=== PATIENT | female | born 1970 | race Caucasian/White ===

== ENCOUNTER 2022-08-20 06:02 | Outpatient (CLI) | payer OTHER, SELFPAY | END 2022-08-20 06:03 | disposition home or self-care (01) | LOC: OP CLINIC 06:05 | PROVIDERS: PCP Physician Assistant Medical; Visit Provider Internal Medicine | DX: Z12.11 Encounter for screening for malignant neoplasm of colon (principal) | CPT/HCPCS: 45378; J2250; J2405; J3010 ==

== ENCOUNTER 2022-09-03 14:45 | Outpatient (CLI) | payer OTHER, SELFPAY ==
[2022-09-03 14:24] LABS: Albumin* 4.5 g/dL (3.3-5.0); Chloride* 100 mmol/L (96-114); Potassium* 4.5 mmol/L (3.6-5.1); Sodium* 135 mmol/L (135-149)
[2022-09-03 14:26] LABS: Cholesterol* 204 mg/dL (90-199); Creatinine* 0.8 mg/dL (0.5-1.5); Estimated Glomerular Filt Rate 89 ml/min
[2022-09-03 14:27] LABS: Alanine Aminotransferase* 20 U/L (4-35); Alkaline Phosphatase* 59 U/L (40-150); Aspartate Amino Transferase* 22 U/L (12-35); Bilirubin Total* 0.5 mg/dL (0.1-1.5); Blood Urea Nitrogen* 19 mg/dL (7-30); Calcium* 8.9 mg/dL (8.4-10.6); Carbon Dioxide* 25 mmol/L (20-32); Glucose* 117 mg/dL (60-115); Total Protein* 6.9 g/dL (6.0-8.3); Triglycerides* 56 mg/dL (40-149)
[2022-09-03 14:28] LABS: HDL Cholesterol* 83 mg/dL (>=50); LDL Cholesterol Calculated 110 mg/dL (<100)
== END 2022-09-03 14:46 | disposition home or self-care (01) ==
PROVIDERS: PCP Physician Assistant Medical; Visit Provider Physician Assistant Medical
DX: Z01.419 Encounter for gynecological examination (general) (routine) without abnormal findings (principal); Z13.6 Encounter for screening for cardiovascular disorders
CPT/HCPCS: 80053; 80061

== ENCOUNTER 2022-09-06 08:46 | Outpatient (CLI) | payer OTHER, SELFPAY ==
[2022-09-06 15:04] LABS: HIV 1/2/P24 Combo Screen* Negative (Negative)
[2022-09-06 18:03] LABS: Hepatitis C Virus Antibody* Negative (Negative)
[2022-09-08 21:44] LABS: Prolactin 18.3 ng/mL (2.8-29.2)
== END 2022-09-06 08:47 | disposition home or self-care (01) ==
PROVIDERS: PCP Physician Assistant Medical; Visit Provider Physician Assistant Medical
DX: Z00.00 Encounter for general adult medical examination without abnormal findings (principal); Z13.29 Encounter for screening for other suspected endocrine disorder; Z11.59 Encounter for screening for other viral diseases
CPT/HCPCS: 84146; 84443; 86703; 86803

== ENCOUNTER 2023-04-27 13:49 | Outpatient (CLI) | payer OTHER, SELFPAY ==
--- NOTE | 2023-04-27 14:00 | CRLHL7_ITS ---
For Patients: As a result of the Cures Act, medical imaging exams and procedure reports are released immediately into your electronic medical record. You may view this report before your referring provider. If you have questions, please contact your health care provider. BILATERAL SCREENING MAMMOGRAM WITH COMPUTER-AIDED DETECTION AND TOMOSYNTHESIS TECHNIQUE: CC and MLO views were obtained. These mammographic images have been obtained using full-field digital technique. These mammographic images were interpreted with the benefit of computer-aided detection. Breast tomosynthesis was used in this interpretation. COMPARISON FILM: 09/17/21, 12/10/20, 03/06/18. FINDINGS: There are scattered areas of fibroglandular density. IMPRESSION: There is no radiographic evidence for malignancy. ASSESSMENT: BI-RADS Category 2: Benign RECOMMENDATION: Routine screening mammogram in 1 year. A lay language report of this examination will be provided to the patient. BRIAN BORRERO M.D. Diagnostic/Nuclear Medicine Radiologist [email or web address] JAMAAL:[email or web address] Transcribed: 04/28/2023, 2:[address]/Dictated by: Brian Borrero MD @ 04/28/2023 9:01:00 AM (Electronically Signed)
== END 2023-04-27 13:50 | disposition home or self-care (01) ==
LOC: MAMMO 13:50
PROVIDERS: PCP Physician Assistant Medical; Visit Provider Physician Assistant Medical
DX: Z12.31 Encounter for screening mammogram for malignant neoplasm of breast (principal)
CPT/HCPCS: 77063; 77067

== ENCOUNTER 2023-10-21 08:26 | Outpatient (CLI) | payer OTHER, SELFPAY | END 2023-10-21 08:27 | disposition home or self-care (01) | LOC: NFLDREF 15:06 | PROVIDERS: PCP Physician Assistant Medical; Referring Provider Physician Assistant Medical; Visit Provider Physician Assistant Medical | DX: Z00.00 Encounter for general adult medical examination without abnormal findings (principal); R73.09 Other abnormal glucose; E78.5 Hyperlipidemia, unspecified | CPT/HCPCS: 80053; 80061; 82607 ==

== ENCOUNTER 2024-09-28 08:05 | Outpatient (CLI) | payer OTHER, SELFPAY ==
--- OUTSIDE RECORDS SUMMARY | 2024-09-30 14:27 | XMS_ITS | Clinical Summary ---
Author Organization [facility] Address [address] [place] [id number] Care Team Providers Care Machine Hoop Maker Helper Name Role Phone Rukhsana Chambers PA-C Primary Care Provider Allergies Active Allergy Reactions Criticality Noted Date Comments Penicillins Nausea and Vomiting 12/23/2018 Resolved Problems Problem Noted Date Diagnosed Date Resolved Date Pain in joint, ankle and foot 01/21/2012 02/25/2012 Other postprocedural status(V45.89) 01/21/2012 02/25/2012 Social History Tobacco Use Types Packs/Day Years Used Date Smoking Tobacco: Never Assessed Comments No Sex and Gender Information Value Date Recorded Sex Assigned at Not on file Legal Sex Female 5:16 AM MEDIA PRODUCER Gender Identity Not on file Sexual Orientation Not on file Last Filed Vital Signs Vital Sign Reading Time Taken Comments Blood Pressure 126/81 12/23/2018 12:35 PM MEDIA PRODUCER Pulse - - Temperature 36.8 C (98.2 F) 12/23/2018 12:35 PM MEDIA PRODUCER Respiratory Rate 16 12/23/2018 12:35 PM MEDIA PRODUCER Oxygen Saturation 99% 12/23/2018 12:35 PM MEDIA PRODUCER Inhaled Oxygen Concentration - - Weight 71.2 kg (157 lb) 12/23/2018 12:35 PM MEDIA PRODUCER Height 167.6 cm (5' 6) 12/23/2018 12:35 PM MEDIA PRODUCER Body Mass Index 25.34 12/23/2018 12:35 PM MEDIA PRODUCER Plan of Treatment Not on file Insurance [employer] Care Teams Machine Hoop Maker Helper Relationship Specialty Start Date End Date Rukhsana Chambers PA-C PCP - General Physician Mangle Operator Garments 08/02/19
--- OUTSIDE RECORDS SUMMARY | 2024-09-30 14:27 | XMS_ITS | Referral Summary ---
Author Organization [facility] Address [address] [place] [id number] Care Team Providers Care Camp Maintenance Supervisor Name Role Phone Rukhsana Chambers PA-C Primary [...] on file Legal Sex Female 5:16 AM CARDIAC CARE NURSE Gender Identity Not on file Sexual Orientation Not on file Last Filed Vital Signs Vital Sign Reading Time Taken Comments Blood Pressure 126/81 12/23/2018 12:35 PM CARDIAC CARE NURSE Pulse - - Temperature 36.8 C (98.2 F) 12/23/2018 12:35 PM CARDIAC CARE NURSE Respiratory Rate 16 12/23/2018 12:35 PM CARDIAC CARE NURSE Oxygen Saturation 99% 12/23/2018 12:35 PM CARDIAC CARE NURSE Inhaled Oxygen Concentration - - Weight 71.2 kg (157 lb) 12/23/2018 12:35 PM CARDIAC CARE NURSE Height 167.6 cm (5' 6) 12/23/2018 12:35 PM CARDIAC CARE NURSE Body Mass Index 25.34 12/23/2018 12:35 PM CARDIAC CARE NURSE Plan of Treatment Not on file Insurance [employer] Care Teams Camp Maintenance Supervisor Relationship Specialty Start Date End Date Rukhsana Chambers PA-C PCP - General Physician Building Cleaning Supervisor 08/02/19
== END 2024-09-28 08:06 | disposition home or self-care (01) ==
LOC: NFLDREF 09-30 14:25
PROVIDERS: PCP Physician Assistant Medical; Referring Provider Physician Assistant Medical; Visit Provider Physician Assistant Medical
DX: Z00.00 Encounter for general adult medical examination without abnormal findings (principal); E78.5 Hyperlipidemia, unspecified; R73.09 Other abnormal glucose; E13.9 Other specified diabetes mellitus without complications
CPT/HCPCS: 80053; 80061; 84443

== ENCOUNTER 2024-10-01 08:02 | Outpatient (CLI) | payer OTHER, SELFPAY ==
--- OUTSIDE RECORDS SUMMARY | 2024-10-01 08:05 | XMS_ITS | Clinical Summary ---
Author Organization [facility] Address [address] [place] [id number] Care Team Providers Care Bank Manager Name Role Phone Rukhsana Chambers PA-C Primary [...] on file Legal Sex Female 5:16 AM TELEPHONE ORDER CLERK Gender Identity Not on file Sexual Orientation Not on file Last Filed Vital Signs Vital Sign Reading Time Taken Comments Blood Pressure 126/81 12/23/2018 12:35 PM TELEPHONE ORDER CLERK Pulse - - Temperature 36.8 C (98.2 F) 12/23/2018 12:35 PM TELEPHONE ORDER CLERK Respiratory Rate 16 12/23/2018 12:35 PM TELEPHONE ORDER CLERK Oxygen Saturation 99% 12/23/2018 12:35 PM TELEPHONE ORDER CLERK Inhaled Oxygen Concentration - - Weight 71.2 kg (157 lb) 12/23/2018 12:35 PM TELEPHONE ORDER CLERK Height 167.6 cm (5' 6) 12/23/2018 12:35 PM TELEPHONE ORDER CLERK Body Mass Index 25.34 12/23/2018 12:35 PM TELEPHONE ORDER CLERK Plan of Treatment Not on file Insurance [employer] Care Teams Bank Manager Relationship Specialty Start Date End Date Rukhsana Chambers PA-C PCP - General Physician Feed Mill Supervisor 08/02/19
--- OUTSIDE RECORDS SUMMARY | 2024-10-01 08:05 | XMS_ITS | Referral Summary ---
Author Organization [facility] Address [address] [place] [id number] Care Team Providers Care Human Development Professor Name Role Phone Rukhsana Chambers PA-C Primary [...] on file Legal Sex Female 5:16 AM SERGEANT OF OFFICERS Gender Identity Not on file Sexual Orientation Not on file Last Filed Vital Signs Vital Sign Reading Time Taken Comments Blood Pressure 126/81 12/23/2018 12:35 PM SERGEANT OF OFFICERS Pulse - - Temperature 36.8 C (98.2 F) 12/23/2018 12:35 PM SERGEANT OF OFFICERS Respiratory Rate 16 12/23/2018 12:35 PM SERGEANT OF OFFICERS Oxygen Saturation 99% 12/23/2018 12:35 PM SERGEANT OF OFFICERS Inhaled Oxygen Concentration - - Weight 71.2 kg (157 lb) 12/23/2018 12:35 PM SERGEANT OF OFFICERS Height 167.6 cm (5' 6) 12/23/2018 12:35 PM SERGEANT OF OFFICERS Body Mass Index 25.34 12/23/2018 12:35 PM SERGEANT OF OFFICERS Plan of Treatment Not on file Insurance [employer] Care Teams Human Development Professor Relationship Specialty Start Date End Date Rukhsana Chambers PA-C PCP - General Physician Pheresis Specialist 08/02/19
--- NOTE | 2024-10-01 08:15 | CRLHL7_ITS ---
For Patients: As a result of the Century Cures Act, medical imaging exams and procedure reports are released immediately into your electronic medical record. You may view this report before your referring provider. If you have questions, please contact your health care provider. BILATERAL SCREENING MAMMOGRAM WITH COMPUTER-AIDED DETECTION AND TOMOSYNTHESIS TECHNIQUE: CC and MLO views were obtained. These mammographic images have been obtained using full-field digital technique. These mammographic images were interpreted with the benefit of computer-aided detection. Breast Tomosynthesis was used in this interpretation. COMPARISON FILM: 04/27/23, 09/17/21 Bilateral diag, 12/10/20, 11/18/20. FINDINGS: There are scattered areas of fibroglandular density IMPRESSION: There is no radiographic evidence for malignancy. ASSESSMENT: BI-RADS Category 1: Negative RECOMMENDATION: Routine screening mammogram in 1 year. A lay language report of this examination will be provided to the patient. Yahir Grier M.D. Diagnostic Radiologist [email or web address] PREET/Dictated by: Yahir Grier MD @ 10/01/2024 12:28:00 PM (Electronically Signed)
== END 2024-10-01 08:03 | disposition home or self-care (01) ==
LOC: MAMMO 08:03
PROVIDERS: PCP Physician Assistant Medical; Visit Provider Physician Assistant Medical
DX: Z12.31 Encounter for screening mammogram for malignant neoplasm of breast (principal)
CPT/HCPCS: 77063; 77067

== ENCOUNTER 2025-10-02 08:00 | Outpatient (CLI) | payer OTHER, SELFPAY | END 2025-10-02 08:01 | disposition home or self-care (01) | LOC: NFLDREF 10-08 09:04 | PROVIDERS: PCP Physician Assistant Medical; Referring Provider Physician Assistant Medical; Visit Provider Physician Assistant Medical | DX: Z00.00 Encounter for general adult medical examination without abnormal findings (principal); E78.5 Hyperlipidemia, unspecified | CPT/HCPCS: 80053; 80061; 82306; 82607; 84443 ==